=== PATIENT | female | born 1935 | race Hispanic/Latino ===

== ENCOUNTER 2017-03-08 16:31 | Emergency (ER) | payer MEDICARE ==
[2017-03-08 19:26] LABS: Anion Gap 21 mmol/L; BUN/Creatinine Ratio 14; Blood Urea Nitrogen 13 mg/dL (7-17); Calcium 9.5 mg/dL (8.4-10.2); Carbon Dioxide 25 mmol/L (22-30); Glucose 199 mg/dL (65-100); Potassium 5.3 mmol/L (3.6-5.0); Sodium 130 mmol/L (137-145)
[2017-03-08] MEDS ORDERED: TYLENOL PO ONE (19:34)
--- NOTE | 2017-03-08 19:58 | Cat Scan Report ---
FINAL REPORT EXAM: CT HEAD/BRAIN WO CON HISTORY: fall TECHNIQUE: Standard unenhanced CT of the head at 5.0 millimeter axial increments. PRIORS: None. FINDINGS: The ventricular system is normal in size and configuration. There is moderate cerebral atrophy. Small vessel ischemic changes in the periventricular white matter are noted with tiny lacunar remote infarcts in the basal ganglia bilaterally. There is also a small remote area of infarct in the high right parietal region. There is no evidence for mass lesion, mass effect, midline shift, acute intracranial hemorrhage, or acute ischemia/ infarction. There is a fracture line involving the lateral wall of the left orbit (axial image 9), the age of which is indeterminate. This has the appearance suggesting a remote unfused fracture. No abnormality in the overlying scalp soft tissues is seen. Visualized paranasal sinuses demonstrates an air-fluid level in the left maxillary sinus. IMPRESSION: 1. no acute intracranial process noted. 2. Small-vessel ischemic changes with small area of infarct in the high right parietal region and lacunar infarcts bilaterally 3. Atrophy 4. Fracture line involving the lateral wall left orbit. However, it has a remote unfused appearance.
[2017-03-08 20:10] LABS: Basophils % (Auto) 0.9 % (0.0-1.8); Eosinophils % (Auto) 2.6 % (0.0-4.3); Hemoglobin 13.3 gm/dl (10.1-14.3); Mean Corpuscular HGB Conc 33 % (30-34); Mean Corpuscular Hemoglobin 31 pg (28-32); Mean Corpuscular Volume 93 fl (79-97); Platelet Count 190 K/mm3 (140-440); Red Blood Count 4.28 M/mm3 (3.65-5.03); Red Cell Distribution Width 13.9 % (13.2-15.2); White Blood Count 9.7 K/mm3 (4.5-11.0)
--- NOTE | 2017-03-08 20:39 | Cat Scan Report ---
FINAL REPORT EXAM: CT FACIAL BONES WO CON HISTORY: fall with left periorbital edema and bruising TECHNIQUE: Standard unenhanced CT facial bones at 2.5 mm axial increments with coronal and sagittal reconstruction PRIORS: None. FINDINGS: There is subcutaneous soft tissue swelling lateral to the left orbit with a few small bubbles of air identified beneath the skin. Beneath this region, there is a linear fracture through the lateral wall of the left orbit (Coronal image 33). Findings suggest an acute fracture. A small air-fluid level in the left maxillary sinus is noted. The frontal, ethmoid, right maxillary, and sphenoid sinuses are clear with no evidence for air-fluid levels or mucosal thickening. Nasal septum is midline. The orbits are intact. The orbital globes are normal. The visualized mastoid air cells are also clear. IMPRESSION: 1. acute fracture involving the lateral wall of left orbit is with overlying subcutaneous soft tissue swelling. 2. No air-fluid level in the left maxillary sinus
[2017-03-08] MEDS ORDERED: ZOFRAN ODT PO ONE (20:51)
[2017-03-08] MEDS ORDERED: PERCOCET 5/325 PO ONE (20:51)
--- NOTE | 2017-03-08 21:20 | Emergency Department Report ---
ED Fall HPI - General Chief Complaint: Fall Stated Complaint: FALL , HEAD PAIN Time Seen by Provider: 03/08/17 20:44 Source: patient Mode of arrival: Ambulatory - History of Present Illness Initial Comments: Patient is 81 years old female brought to the ER for evaluation after a fall, patient stated that she was walking and she tripped a towel coffee table on the left side she is complaining of left face swelling and tenderness, left elbow tenderness left chest tenderness and left hip tenderness. Patient denied any loss of consciousness she denied any symptoms before the fall specifically no shortness of breath no dizziness no chest pain or lightheadedness. MD Complaint: fall -: Sudden Fall From: standing When Fall Occurred: just prior to arrival Fall Witnessed: yes, by family Place Fall Occurred: home Loss of Consciousness: none Prolonged Down Time?: no Symptoms Prior to Fall: none Location: head, face, chest Location - Extremities: Left: Elbow Severity: moderate Quality: sharp Context: tripped/slipped Associated Symptoms: denies: headache, neck pain, numbness, weakness, chest paint, shortness of breath, abdominal pain, hematuria, unable to walk, lightheaded, vertigo, confusion - Related Data Home Medications Medication Instructions Recorded Confirmed Last Taken Dexlansoprazole [Dexilant] 60 mg PO DAILY 09/13/15 03/08/17 09/12/15 Digoxin [Lanoxin] 0.125 mg PO QDAY 09/13/15 03/08/17 09/12/15 Furosemide [Lasix] 20 mg PO QDAY PRN 09/13/15 03/08/17 09/12/15 Gabapentin [Neurontin] 300 mg PO Q8HR 09/13/15 03/08/17 09/12/15 Insulin Glargine,Hum.rec.anlog 70 units SQ QHS 09/13/15 03/08/17 09/12/15 [Lantus Solostar] Insulin Lispro [Humalog 100 70 units SQ AC 09/13/15 03/08/17 09/12/15 UNITS/ML Kwikpen] Ipratropium (Nf) [Atrovent HFA 1 puff PO BID 09/13/15 03/08/17 09/12/15 17MCG/PUFF] Ipratropium/Albuterol Sulfate 1 spray IH QID 09/13/15 03/08/17 09/13/15 [Combivent Respimat] Levalbuterol HCl [Xopenex 1.25 mg IH BID 09/13/15 03/08/17 09/13/15 Concentrate] Levofloxacin [Levaquin TAB] 500 mg PO QDAY 09/13/15 03/08/17 09/12/15 Losartan [Cozaar] 100 mg PO QDAY 09/13/15 03/08/17 09/12/15 Rosuvastatin (Nf) [Crestor] 5 mg PO QHS 09/13/15 03/08/17 09/12/15 traZODone [Desyrel] 50 mg PO QHS 09/13/15 03/08/17 09/12/15 Benzonatate [Tessalon Perles] 100 mg PO QDAY PRN 03/08/17 03/08/17 Unknown Allergies Allergy/AdvReac Type Severity Reaction Status Date / Time albuterol Allergy Unknown Verified 09/13/15 13:28 ED Review of Systems ROS: Stated complaint: FALL , HEAD PAIN Other details as noted in HPI Comment: All other systems reviewed and negative Constitutional: denies: chills, fever Eyes: eye pain. denies: eye discharge, vision change ENT: denies: ear pain, throat pain, hearing loss Respiratory: denies: cough, orthopnea, shortness of breath, SOB with exertion, SOB at rest Cardiovascular: denies: chest pain, palpitations, dyspnea on exertion, orthopnea , syncope, paroxysmal nocturnal dyspnea Gastrointestinal: denies: abdominal pain, nausea, vomiting, diarrhea, constipation, hematemesis, melena, hematochezia Genitourinary: denies: hematuria Musculoskeletal: denies: back pain Skin: denies: lesions Neurological: denies: headache, weakness, numbness, paresthesias ED Past Medical Hx - Past Medical History Previous Medical History?: Yes Hx Hypertension: Yes Hx Diabetes: Yes Hx GERD: Yes Hx Asthma: Yes Hx COPD: Yes Additional medical history: CAD - Surgical History Past Surgical History?: Yes Additional Surgical History: "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" - Social History Smoking Status: Former Smoker Substance Use Type: Prescribed - Medications Home Medications: Home Medications Medication Instructions Recorded Confirmed Last Taken Type Dexlansoprazole [Dexilant] 60 mg PO DAILY 09/13/15 03/08/17 09/12/15 History Digoxin [Lanoxin] 0.125 mg PO QDAY 09/13/15 03/08/17 09/12/15 History Furosemide [Lasix] 20 mg PO QDAY PRN 09/13/15 03/08/17 09/12/15 History Gabapentin [Neurontin] 300 mg PO Q8HR 09/13/15 03/08/17 09/12/15 History Insulin Glargine,Hum.rec.anlog 70 units SQ QHS 09/13/15 03/08/17 09/12/15 History [Lantus Solostar] Insulin Lispro [Humalog 100 70 units SQ AC 09/13/15 03/08/17 09/12/15 History UNITS/ML Kwikpen] Ipratropium (Nf) [Atrovent HFA 1 puff PO BID 09/13/15 03/08/17 09/12/15 History 17MCG/PUFF] Ipratropium/Albuterol Sulfate 1 spray IH QID 09/13/15 03/08/17 09/13/15 History [Combivent Respimat] Levalbuterol HCl [Xopenex 1.25 mg IH BID 09/13/15 03/08/17 09/13/15 History Concentrate] Levofloxacin [Levaquin TAB] 500 mg PO QDAY 09/13/15 03/08/17 09/12/15 History Losartan [Cozaar] 100 mg PO QDAY 09/13/15 03/08/17 09/12/15 History Rosuvastatin (Nf) [Crestor] 5 mg PO QHS 09/13/15 03/08/17 09/12/15 History traZODone [Desyrel] 50 mg PO QHS 09/13/15 03/08/17 09/12/15 History Benzonatate [Tessalon Perles] 100 mg PO QDAY PRN 03/08/17 03/08/17 Unknown History ED Physical Exam - General Limitations: No Limitations General appearance: alert, in no apparent distress - Head Head exam: Present: other (left periorbital swelling) - Eye Eye exam: Present: periorbital swelling, periorbital tenderness Pupils: Present: normal accommodation - ENT ENT exam: Present: normal exam, normal orophraynx, mucous membranes moist - Neck Neck exam: Present: normal inspection, full ROM. Absent: tenderness, meningismus, lymphadenopathy, thyromegaly - Respiratory Respiratory exam: Present: chest wall tenderness. Absent: respiratory distress , wheezes, rales, rhonchi - Cardiovascular Cardiovascular Exam: Present: regular rate, normal rhythm, normal heart sounds - GI/Abdominal GI/Abdominal exam: Present: soft, normal bowel sounds. Absent: distended, tenderness, guarding, rebound, rigid, diminished bowel sounds, hyperactive bowel sounds, hypoactive bowel sounds, organomegaly, mass, bruit, pulsatile mass , hernia - Expanded Upper Extremity Exam Left Shoulder Exam: Present: normal inspection, full ROM. Absent: tenderness Upper Arm exam: Present: normal inspection, full ROM. Absent: tenderness Elbow exam: Present: full ROM, tenderness, swelling, ecchymosis. Absent: laceration, deformity - Back Exam Back exam: Present: normal inspection, full ROM. Absent: tenderness, CVA tenderness (R), CVA tenderness (L), muscle spasm, paraspinal tenderness, vertebral tenderness - Neurological Exam Neurological exam: Present: alert, oriented X3, CN II-XII intact, normal gait, reflexes normal. Absent: motor sensory deficit - Skin Skin exam: Present: warm, intact, normal color. Absent: cyanosis ED Course Vital Signs 03/08/17 03/08/17 03/08/17 16:56 18:29 18:41 Temperature 98.4 F 97.5 F L Pulse Rate 64 63 Respiratory 16 16 16 Rate Blood Pressure 125/63 Blood Pressure 147/61 [Right] O2 Sat by Pulse 98 100 Oximetry 03/08/17 22:12 Temperature Pulse Rate 66 Respiratory 18 Rate Blood Pressure Blood Pressure 162/62 [Right] O2 Sat by Pulse 99 Oximetry - Reevaluation(s) Reevaluation #1: 03/08/17 22:23 Patient stated that she is feeling much better no other complaints ED Medical Decision Making - Lab Data Result diagrams: 03/08/17 18:32 03/08/17 18:51 - Radiology Data Radiology results: image reviewed CT brain unremarkable, CT facial bone left orbital fracture, left elbow x-ray unremarkable, left hip unremarkable Critical care attestation.: If time is entered above; I have spent that time in minutes in the direct care of this critically ill patient, excluding procedure time. ED Disposition Clinical Impression: Orbital fracture, Fall Disposition: DC-01 TO HOME OR SELFCARE Is pt being admited?: No Condition: Stable Instructions: Facial Fracture (ED), Fall Prevention (ED) Referrals: PRIMARY CARE,MD [Primary Care Provider] - 3-5 Days
[2017-03-08 22:12] VITALS: BP 162/62
--- NOTE | 2017-03-09 09:29 | XRay Report ---
Chest 2 views. History: Cough and shortness of breath. Findings: The heart is borderline in size. The lungs are clear. An endovascular stent is seen in the descending thoracic aorta which is more tortuous than on the previous study in 2016. Impression: No acute findings.
--- NOTE | 2017-03-09 09:30 | XRay Report ---
Left elbow 2 views. History: Pain after trauma. Findings: No fractures or other acute findings are seen.
--- NOTE | 2017-03-09 09:30 | XRay Report ---
Left hip 2 views. History: Pain after trauma. Findings: There are no fractures or other acute findings. The joint space is normal. Vascular opacifications are noted. Impression: No acute findings.
== END 2017-03-08 22:49 | disposition home or self-care (01) ==
LOC: ED 16:31
DX: S02.82XA Fracture of other specified skull and facial bones, left side, initial encounter for closed fracture (principal); W18.30XA Fall on same level, unspecified, initial encounter; Y93.89 Activity, other specified; Y92.89 Other specified places as the place of occurrence of the external cause; Y99.8 Other external cause status; I10 Essential (primary) hypertension; E11.9 Type 2 diabetes mellitus without complications; K21.9 Gastro-esophageal reflux disease without esophagitis; J45.909 Unspecified asthma, uncomplicated; J44.9 Chronic obstructive pulmonary disease, unspecified; I25.10 Atherosclerotic heart disease of native coronary artery without angina pectoris
CPT/HCPCS: 36415; 70450; 70486; 71020; 80048; 84484; 85025; 93005; 93010; Q0162

== ENCOUNTER 2019-01-30 11:51 | Outpatient (CLI) | payer MEDICARE ==
--- NOTE | 2019-01-30 14:29 | Cat Scan Report ---
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 All CT data was transferred to a 3D workstation for multi planar reformation and 3D reconstruction under concurrent physician supervision. All CT scans at this location are performed using CT dose reduction for ALARA by means of automated exposure control. FINDINGS: CTA ABDOMEN PELVIS: Markedly tortuous lower thoracic aorta with stent graft in place. Large mural thrombus present proxim al abdominal aorta at the level of the celiac axis. The celiac axis is patent. The origin of the sup erior mesenteric artery is patent. There are single bilateral renal arteries, which are heavily calci fied. The infrarenal abdominal aorta demonstrates a 5.0 x 4.4 cm aneurysm with its origin at the leve l of the renal arteries. Large volume of mural thrombus is present. The aorta extends over a distance of 12 cm and extends into the iliac arteries which are heavily calcified. 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 Dense calcified plaques present throughout course of a patent left exte rnal iliac artery. Diffuse dilatation of the right external iliac artery is present. CT ABDOMEN PELVIS: Noncontrast imaging of the upper abdomen fails to demonstrate abnormal calcifications, cholelithiasis , or nephrolithiasis. Patchy airspace changes are present right lower lobe. Large hiatal hernia is present. No focal parenchymal abnormalities are identified. The gallbladder, pancreas, adrenal glands, and kidneys are within normal limits. Small bilateral renal cyst are presen t. There is no evidence of biliary ductal dilatation. The portal and hepatic veins are patent. No d efinite intraabdominal or retroperitoneal lymphadenopathy is identified. The bowel gas pattern is no nspecific and nonobstructive. There is no evidence of free intraperitoneal air or free intraperitone al fluid. IVC contains a filter. CT through the pelvis reveals the bladder to be well distended and smooth in contour. Complex cyst pr esent posterior to the urinary bladder right of midline measuring 3.8 x 2.5 cm There is no evidence o f free air or free fluid within the pelvis. No focal soft tissue mass lesions or lymphadenopathy anahi ntified. IMPRESSION: 1. Markedly abnormal abdominal aorta with aneurysm place with dense calcified plaque in large volume of mural thrombus 2. Evidence of thoracic aortic stent graft 3. 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 Diffuse aneurysm dilatation of the right external iliac artery 6. Patchy parenchymal changes right lower lobe recommend clinical correlation 7. Complex cyst within the pelvis 8. Large hiatal hernia Signer Name: Balta Nava MD Signed: 01/30/2019 2:25 PM Workstation Name: [id number]
== END 2019-01-30 11:52 | disposition home or self-care (01) ==
LOC: CT 11:51
PROVIDERS: ATTEND Surgery Vascular Surgery
DX: I71.4 Abdominal aortic aneurysm, without rupture (principal); K44.9 Diaphragmatic hernia without obstruction or gangrene; N94.89 Other specified conditions associated with female genital organs and menstrual cycle
CPT/HCPCS: 36415; 74174; 82565; 84520; Q9967

== ENCOUNTER 2019-03-30 12:52 | Emergency (ER) | payer MEDICARE ==
[2019-03-30] MEDS ORDERED: ACETAMINOPHEN 325 MG TAB PO ONE (13:44)
[2019-03-30 14:15] LABS: Basophils # (Auto) 0.1 K/mm3 (0.0-0.1); Basophils % (Auto) 1.2 % (0.0-1.8); Eosinophils % (Auto) 0.5 % (0.0-4.3); Hemoglobin 12.5 gm/dl (10.1-14.3); Lymphocytes # (Auto) 0.9 K/mm3 (1.2-5.4); Lymphocytes % (Auto) 11.1 % (13.4-35.0); Mean Corpuscular HGB Conc 34 % (30-34); Mean Corpuscular Volume 94 fl (79-97); Monocytes # (Auto) 0.7 K/mm3 (0.0-0.8); Platelet Count 250 K/mm3 (140-440); Red Blood Count 3.94 M/mm3 (3.65-5.03); Red Cell Distribution Width 14.8 % (13.2-15.2)
--- NOTE | 2019-03-30 14:35 | XRay Report ---
LUMBAR SPINE 3 VIEWS INDICATION: back pain COMPARISON: None. FINDINGS: There is no fracture, subluxation, or other acute radiographic abnormality of the lumbar spine. There is discogenic degenerative change throughout the MR spine. There is osteophyte formation anteriorly. There is disc space narrowing. There is an aortic stent graft in the thoracic aorta. There is an IVC filter. Signer Name: Marlon Ahumada MD Signed: 03/30/2019 2:30 PM Workstation Name: [id number]
[2019-03-30 14:43] LABS: Albumin 3.4 g/dL (3.9-5)
--- NOTE | 2019-03-30 14:52 | Emergency Department Report ---
ED Back Pain/Injury HPI - General Chief Complaint: Back Pain/Injury Stated Complaint: NERVE PAIN Time Seen by Provider: 03/30/19 13:31 Source: patient, EMS Limitations: No Limitations - History of Present Illness Initial Comments: 83-year-old female presents to the emergency room for left hip and leg and back pain 1 week. Patient denies any trauma and no falls. Patient reports that she was recently seen and admitted to [facility] and was prescribed oxycodone. Patient reports that the oxycodone has not helped. Patient reports that she is not able to get her clothes on standing or able to ambulate to the potty. Patient has a past medical history of CHF, 2 aneurysms, hypertension and diabetes. Patient denies any dysuria no chest pain or ab dominal pain. Does have a primary care provider reports that he will not be back in town until Monday. Onset/Timin -: week(s) Similar Symptoms Previously: Yes Severity: severe Severity scale (0 -10): 9 Quality: sharp, aching Consistency: constant Improves With: none Worsens With: walking Associated Symptoms: difficulty walking - Related Data Home Medications Medication Instructions Recorded Confirmed Last Taken Dexlansoprazole [Dexilant] 60 mg PO DAILY 09/13/15 03/08/17 09/12/15 Digoxin [Lanoxin] 0.125 mg PO QDAY 09/13/15 03/08/17 09/12/15 Furosemide [Lasix] 20 mg PO QDAY PRN 09/13/15 03/08/17 09/12/15 Gabapentin [Neurontin] 300 mg PO Q8HR 09/13/15 03/08/17 09/12/15 Insulin Glargine,Hum.rec.anlog 70 units SQ QHS 09/13/15 03/08/17 09/12/15 [Lantus Solostar] Insulin Lispro [Humalog 100 70 units SQ AC 09/13/15 03/08/17 09/12/15 UNITS/ML Kwikpen] Ipratropium (Nf) [Atrovent HFA 1 puff PO BID 09/13/15 03/08/17 09/12/15 17MCG/PUFF] Ipratropium/Albuterol Sulfate 1 spray IH QID 09/13/15 03/08/17 09/13/15 [Combivent Respimat] Levalbuterol HCl [Xopenex 1.25 mg IH BID 09/13/15 03/08/17 09/13/15 Concentrate] Losartan [Cozaar] 100 mg PO QDAY 09/13/15 03/08/17 09/12/15 Rosuvastatin (Nf) [Crestor] 5 mg PO QHS 09/13/15 03/08/17 09/12/15 levoFLOXacin [Levaquin TAB] 500 mg PO QDAY 09/13/15 03/08/17 09/12/15 traZODone [Desyrel] 50 mg PO QHS 09/13/15 03/08/17 09/12/15 Benzonatate [Tessalon Perles] 100 mg PO QDAY PRN 03/08/17 03/08/17 Unknown Previous Rx's Medication Instructions Recorded Last Taken Type Amoxicillin [Amoxicillin TAB] 875 mg PO BID #14 tablet 03/08/17 Unknown Rx Ondansetron [Zofran Odt] 4 mg PO Q8HR PRN #14 tab.rapdis 03/08/17 Unknown Rx oxyCODONE /ACETAMINOPHEN [Percocet 1 tab PO Q6HR PRN #14 tablet 03/08/17 Unknown Rx 5/325] Meloxicam [Mobic] 7.5 mg PO QDAY #14 tablet 03/30/19 Unknown Rx Allergies Allergy/AdvReac Type Severity Reaction Status Date / Time albuterol Allergy Unknown Verified 09/13/15 13:28 ED Review of Systems ROS: Stated complaint: NERVE PAIN Other details as noted in HPI Comment: All other systems reviewed and negative ED Past Medical Hx - Past Medical History Hx Hypertension: Yes Hx Diabetes: Yes Hx GERD: Yes Hx Asthma: Yes Hx COPD: Yes Additional medical history: CAD - Surgical History Additional Surgical History: "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" - Social History Smoking Status: Never Smoker Substance Use Type: None - Medications Home Medications: Home Medications Medication Instructions Recorded Confirmed Last Taken Type Dexlansoprazole [Dexilant] 60 mg PO DAILY 09/13/15 03/08/17 09/12/15 History Digoxin [Lanoxin] 0.125 mg PO QDAY 09/13/15 03/08/17 09/12/15 History Furosemide [Lasix] 20 mg PO QDAY PRN 0503/08/17 09/12/15 History Gabapentin [Neurontin] 300 mg PO Q8HR 09/13/15 03/08/17 09/12/15 History Insulin Glargine,Hum.rec.anlog 70 units SQ QHS 09/13/15 03/08/17 09/12/15 History [Lantus Solostar] Insulin Lispro [Humalog 100 70 units SQ AC 09/13/15 03/08/17 09/12/15 History UNITS/ML Kwikpen] Ipratropium (Nf) [Atrovent HFA 1 puff PO BID 09/13/15 03/08/17 09/12/15 History 17MCG/PUFF] Ipratropium/Albuterol Sulfate 1 spray IH QID 09/13/15 03/08/17 09/13/15 History [Combivent Respimat] Levalbuterol HCl [Xopenex 1.25 mg IH BID 09/13/15 03/08/17 09/13/15 History Concentrate] Losartan [Cozaar] 100 mg PO QDAY 09/13/15 03/08/17 09/12/15 History Rosuvastatin (Nf) [Crestor] 5 mg PO QHS 09/13/15 03/08/17 09/12/15 History levoFLOXacin [Levaquin TAB] 500 mg PO QDAY 09/13/15 03/08/17 09/12/15 History traZODone [Desyrel] 50 mg PO QHS 09/13/15 03/08/17 09/12/15 History Amoxicillin [Amoxicillin TAB] 875 mg PO BID #14 tablet 03/08/17 Unknown Rx Benzonatate [Tessalon Perles] 100 mg PO QDAY PRN 03/08/17 03/08/17 Unknown History Ondansetron [Zofran Odt] 4 mg PO Q8HR PRN #14 tab.rapdis 03/08/17 Unknown Rx oxyCODONE /ACETAMINOPHEN [Percocet 1 tab PO Q6HR PRN #14 tablet 03/08/17 Unknown Rx 5/325] Meloxicam [Mobic] 7.5 mg PO QDAY #14 tablet 03/30/19 Unknown Rx ED Physical Exam - General Limitations: No Limitations General appearance: alert, in no apparent distress - Head Head exam: Present: atraumatic, normocephalic - Eye Eye exam: Present: EOMI - ENT ENT exam: Present: normal exam, mucous membranes moist - Neck Neck exam: Present: full ROM - Respiratory Respiratory exam: Present: normal lung sounds bilaterally. Absent: respiratory distress - Cardiovascular Cardiovascular Exam: Present: regular rate, normal rhythm. Absent: systolic murmur, diastolic murmur, rubs, gallop - GI/Abdominal GI/Abdominal exam: Present: soft. Absent: distended, tenderness - Rectal Rectal exam: Present: deferred - Expanded Lower Extremity Exam Left Hip exam: Present: tenderness Upper Leg exam: Present: tenderness Knee exam: Present: normal inspection Lower Leg exam: Present: tenderness Foot/Toe exam: Present: normal inspection. Absent: tenderness Neuro vascular tendon exam: Present: no vascular compromise - Back Exam Back exam: Present: normal inspection - Neurological Exam Neurological exam: Present: alert, oriented X3 - Psychiatric Psychiatric exam: Present: normal affect, normal mood - Skin Skin exam: Present: warm, dry, intact, normal color. Absent: rash ED Course Vital Signs 03/30/19 03/30/19 13:13 13:49 Temperature 97.7 F Pulse Rate 94 H Respiratory 18 20 Rate Blood Pressure 153/68 Blood Pressure 153/68 [Right] O2 Sat by Pulse 99 Oximetry ED Medical Decision Making - Lab Data Result diagrams: 03/30/19 13:50 03/30/19 13:50 Laboratory Results - last 72 hr 03/30/19 03/30/19 13:50 13:50 WBC 7.8 RBC 3.94 Hgb 12.5 Hct 37.0 MCV 94 MCH 32 MCHC 34 RDW 14.8 Plt Count 250 Lymph % (Auto) 11.1 L Darke % (Auto) 9.0 H Eos % (Auto) 0.5 Baso % (Auto) 1.2 Lymph # 0.9 L Darke # 0.7 Eos # 0.0 Baso # 0.1 Seg Neutrophils % 78.2 H Seg Neutrophils # 6.1 Sodium 131 L Potassium 4.1 Chloride 89.8 L Carbon Dioxide 25 Anion Gap 20 BUN 27 H Creatinine 0.9 Estimated GFR 60 BUN/Creatinine Ratio 30 Glucose 237 H Calcium 9.0 Total Bilirubin 1.10 AST 38 ALT 68 H Alkaline Phosphatase 72 Total Protein 6.8 Albumin 3.4 L Albumin/Globulin Ratio 1.0 - Radiology Data Radiology results: report reviewed Patient: JUS SMITH MR#: [id number] : 1935 Acct:[id number] Age/Sex: 83 / F ADM Date: 03/30/19 Loc: ED Attending Dr: Ordering Physician: JENNIFFER NEWELL Date of Service: 03/30/19 Procedure(s): XR hip 2-3V LT Accession Number(s): [id number] cc: JENNIFFER NEWELL Fluoro Time In Minutes: LEFT HIP 2 VIEWS INDICATION / CLINICAL INFORMATION: Left hip pain. COMPARISON: 03/08/2017 FINDINGS: Extensive atherosclerosis and advanced degenerative change in the lower lumbar spine. Mild, diffuse osteopenia. Mild degenerative change but no acute abnormality of the left hip. Signer Name: Chandrakant Mccabe MD Signed: 03/30/2019 3:29 PM Workstation Name: [id number] Transcribed By: TM Dictated By: Chandrakant Mccabe MD Electronically Authenticated By: Chandrakant Mccabe MD Signed Date/Time: 03/30/19 152 DD/ 1527 TD/TT: Patient: JUS SMITH MR#: [id number] : 1935 Acct:[id number] Age/Sex: 83 / F ADM Date: 03/30/19 Loc: ED Attending Dr: Ordering Physician: JENNIFFER NEWELL Date of Service: 03/30/19 Procedure(s): XR spine lumbosacral 2-3V Accession Number(s): [id number] cc: JENNIFFER NEWELL Fluoro Time In Minutes: LUMBAR SPINE 3 VIEWS INDICATION: back pain COMPARISON: None. FINDINGS: There is no fracture, subluxation, or other acute radiographic abnormality of the lumbar spine. There is discogenic degenerative change throughout the MR spine. There is osteophyte formation anteriorly. There is disc space narrowing. There is an aortic stent graft in the thoracic aorta. There is an IVC filter. Signer Name: Marlon Ahumada MD Signed: 03/30/2019 2:30 PM Workstation Name: [id number] Transcribed By: SS Dictated By: Marlon Ahumada MD Electronically Authenticated By: Marlon Ahumada MD Signed Date/Time: 03/30/19 1430 DD/ 28 TD/TT: - Medical Decision Making 83-year-old female presents to the emergency room for left hip and leg and back pain 1 week. Patient denies any trauma and no falls. Patient reports that she was recently seen and admitted to [facility] and was prescribed oxycodone. Patient reports that the oxycodone has not helped. Patient reports that she is not able to get her clothes on standing or able to ambulate to the potty. Patient has a past medical history of CHF, 2 aneurysms, hypertension and diabetes. Patient denies any dysuria no chest pain or abdominal pain. Does have a primary care provider reports that he will not be back in town until Monday. Patient's pain has improved. Patient be discharged home on Mobic and referral to Dr. Hair Critical care attestation.: If time is entered above; I have spent that time in minutes in the direct care of this critically ill patient, excluding procedure time. 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 Follow-up with orthopedic provider. Prescriptions: Meloxicam [Mobic] 7.5 mg PO QDAY #14 tablet Referrals: DIONNA RENTERIA MD [Primary Care Provider] - 3-5 Days MARIO HAIR MD [Staff Physician] - 3-5 Days
[2019-03-30] MEDS ORDERED: MORPHINE 4 MG/1 ML INJ IV ONE (15:10)
[2019-03-30] MEDS ORDERED: ONDANSETRON 4 MG/2 ML INJ IV ONE (15:10)
--- NOTE | 2019-03-30 15:33 | XRay Report ---
LEFT HIP 2 VIEWS INDICATION / CLINICAL INFORMATION: Left hip pain. COMPARISON: 03/08/2017 FINDINGS: Extensive atherosclerosis and advanced degenerative change in the lower lumbar spine. Mild, diffuse o steopenia. Mild degenerative change but no acute abnormality of the left hip. Signer Name: Chandrakant Mccabe MD Signed: 03/30/2019 3:29 PM Workstation Name: [id number]
[2019-03-30] MEDS ORDERED: SODIUM CHLORIDE 0.9% 1000 ML 0 ML ONE (16:49)
[2019-03-30 17:42] VITALS: BP 127/43
== END 2019-03-30 18:12 | disposition home or self-care (01) ==
LOC: ED 12:52
DX: M16.12 Unilateral primary osteoarthritis, left hip (principal); M54.9 Dorsalgia, unspecified; I10 Essential (primary) hypertension; E11.9 Type 2 diabetes mellitus without complications; K21.9 Gastro-esophageal reflux disease without esophagitis; J44.9 Chronic obstructive pulmonary disease, unspecified; I25.10 Atherosclerotic heart disease of native coronary artery without angina pectoris; Z98.890 Other specified postprocedural states; Z88.1 Allergy status to other antibiotic agents; Z79.899 Other long term (current) drug therapy; Z88.8 Allergy status to other drugs, medicaments and biological substances
CPT/HCPCS: 36415; 72100; 73502; 80053; 85025; 96374; 96375; 99284; J2270; J2405; J7030